=== PATIENT | female | born 1980 | race Two or more races ===

== ENCOUNTER → 2019-12-18 | Outpatient (CLI) | payer BC | END | disposition home or self-care (01) | LOC: LAB 15:51 | PROVIDERS: ATTEND Nurse Practitioner Women's Health | DX: N92.6 Irregular menstruation, unspecified (principal) | CPT/HCPCS: 36415; 84702 ==

== ENCOUNTER → 2019-12-20 | Outpatient (CLI) | payer BC ==
--- NOTE | 2019-12-20 13:32 | RAD ---
INDICATION: Reason: MENORRHAGIA, H/O BTL WITH CLIPS / Spl. Instructions: / History: COMPARISON: None. TECHNIQUE: Grayscale and color ultrasound images uterus and adnexa. FINDINGS: Uterus: 116 x 56 x 48 mm. Endometrial Stripe: 6 mm. Right Ovary: 28 x 19 x 16 mm. Left Ovary: 32 x 26 x 22 mm. Vascular flow identified to bilateral ovaries. Bilateral clips are not seen on this exam. 15 x 13 mm hypoechoic lesion within the myometrium of the uterus 13 mm nabothian cysts at cervix. IMPRESSION: * Hypoechoic lesion within the uterus which is most commonly from a fibroid. There is also suspected nabothian cyst. * Surgical clips are not seen Electronically signed by: Wood Gimenez MD (12/20/2019 1:29 PM) [id number]
== END | disposition home or self-care (01) ==
LOC: US 09:35
PROVIDERS: ATTEND Obstetrics & Gynecology
DX: N92.0 Excessive and frequent menstruation with regular cycle (principal); N88.8 Other specified noninflammatory disorders of cervix uteri
CPT/HCPCS: 76856